=== PATIENT | male | born 1995 | race Caucasian/White ===

== ENCOUNTER 2017-01-19 08:53 | Emergency (ER) | payer OTHER ==
[~2017-01-19] VITALS: Ht 162.6 cm; Wt 64.4 kg
[~2017-01-19 08:53] MED LIST: AGM875T PO; HYDR-1231 PO; IBUP-792 PO; KETO75CA PO; [UNRECOGNIZED DRUG - OTHER]
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
--- NOTE | 2017-01-19 10:57 | ED Back Pain ---
General Chief Complaint: Back Problems Stated Complaint: BACK PAIN Nursing Triage Note: Pt fell out of a tree 2 days ago. Pt was evaluated at [facility] and had xrays done. Xray reports recieved from [facility]. Nursing Sepsis Screen: No Definite Risk Source of Information: Patient Exam Limitations: No Limitations History of Present Illness Time Seen by Provider: 10:30 Initial Comments The patient is a 21-year-old white male who reports that he fell from the tree about 2 days ago. He estimated the height to be 7-8 feet. His feet struck the [place] fence below and he fell backward heavily on his back. He had been seen by [facility]. He was x-rayed which showed perhaps a minimally narrowed joint space at L4 5. He was given a narcotic pain reliever which he did not want and would have preferred a muscle relaxant. He was also given an appointment to ortho 4 states which the thought was a bit much. He continues to have pain and stiffness. Timing/Duration: 2-3 Days Pain/Injury Location: Back Allergies and Home Medications Allergies Coded Allergies: No Known Drug Allergies (Unverified , 04/25/10) Home Medications Hydrocodone Bit/Acetaminophen 1 Tab Tablet #14 1 TAB PO Q6H PRN PRN PAIN Prescribed by: JOSE R HOPKINS on 05/03/15 1300 Constitutional: see HPI EENTM: no symptoms reported Respiratory: no symptoms reported Cardiovascular: no symptoms reported Gastrointestinal: no symptoms reported Genitourinary: no symptoms reported Musculoskeletal: back pain muscle pain Skin: no symptoms reported Psychiatric/Neurological: No Symptoms Reported Past Tjvouez-Mxhwsz-Wohjhn Hx Patient Social History Alcohol Use: Occasionally Uses Recreational Drug Use: Yes Drug of Choice: marijuana Smoking Status: Never a Smoker Recent Foreign Travel: No Contact w/Someone Who Travel: No Recent Infectious Disease Expo: No Recent Hopitalizations: No Immunizations Up To Date Tetanus Booster (TDap): Less than 5yrs Seasonal Allergies Seasonal Allergies: No Surgeries HX Surgeries: Yes (Cyst removed) Respiratory Hx Respiratory Disorders: No Cardiovascular Hx Cardiac Disorders: No Neurological Hx Neurological Disorders: No Reproductive System Hx Reproductive Disorders: No Genitourinary Hx Genitourinary Disorders: No Gastrointestinal Hx Gastrointestinal Disorders: No Musculoskeletal Hx Musculoskeletal Disorders: Yes (Hx of dislocated Left Shoulder) Endocrine Hx Endocrine Disorders: No HEENT HX ENT Disorders: No Cancer Hx Cancer: No Psychosocial Hx Psychiatric Problems: No Integumentary HX Skin/Integumentary Disorder: Yes (Persistant cystic acne) Skin/Integumentary Disorders: Recent Skin Changes Blood Transfusions Hx Blood Disorders: No Family Medical History Significant Family History: No Pertinent Family Hx Physical Exam Vital Signs Vital Sign - Last 12Hours 01/19/17 09:29 Temp 97.2 Pulse 100 Resp 18 B/P 127/87 Pulse Ox 99 Capillary Refill : Less Than 3 Seconds General Appearance: Mild Distress Cardiovascular: Regular Rate, Rhythm No Edema No Gallop No JVD No Murmur Normal Peripheral Pulses Respiratory: Chest Non Tender Lungs Clear Normal Breath Sounds No Accessory Muscle Use No Respiratory Distress Accessory Muscle Use Comments The patient showed shortening of the paravertebral muscles on the right. There is tenderness to palpation over the lower rib cage and along the right paravertebral muscles. He was carrying himself tilted to the right. There was pain to leftward side flex. There was minimum pain to extension. He lacked 1 foot of toe-touch. Progress/Results/Core Measures Results/Orders Vital Signs/I&O Vital Sign - Last 12Hours 01/19/17 09:29 Temp 97.2 Pulse 100 Resp 18 B/P 127/87 Pulse Ox 99 Blood Pressure Mean: 100 Departure Impression Impression: Primary Impression: right sided paravertebral muscle spasm Disposition: 01 HOME, SELF-CARE Condition: Stable/Unchanged Departure-Patient Inst. Decision time for Depature: 10:58 Referrals: [facility] (PCP/Family) Primary Care Physician Patient Instructions: Lumbar Muscle Strain (DC) Add. Discharge Instructions: All discharge instructions reviewed with patient and/or family. Voiced understanding. Use heat to the area. Gentle stretching exercises as demonstrated Flexeril as needed for muscle spasm and tightness Scripts [Flexeril] No Conflict Check10 Bid Prn Pain #20 Prov:KOSTA DOW MD 01/19/17 KOSTA DOW MD Jan 19, 2017 10:57
[2017-01-19] MEDS ORDERED: Flexeril (10:59)
[2017-01-19 11:00] VITALS: BP 124/84
== END 2017-01-19 11:00 | disposition home or self-care (01) ==
LOC: EDUNIT# 08:53 → ER 08:55
DX: M62.830 Muscle spasm of back (principal)
CPT/HCPCS: 99281

== ENCOUNTER 2017-03-22 17:03 | Emergency (ER) | payer SELFPAY ==
[~2017-03-22] VITALS: Ht 162.6 cm; Wt 64.4 kg
[~2017-03-22 17:03] MED LIST changes: +Flexeril
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
[2017-03-22] MEDS ORDERED: ACETAMINOPHEN 500 MG TAB (TYLENOL) PO ONE (17:30)
[2017-03-22] MEDS ORDERED: MUPIROCIN 2% OINT 22 GM (BACTROBAN) TUBE ONE (17:45)
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
[2017-03-22] MEDS ORDERED: RX-MUPIROCIN (BACTROBAN) 2% OINT 22 GM TUBE TOP STA (18:08)
[2017-03-22 18:48] VITALS: BP 0/0
[2017-03-22] MEDS ORDERED: MUPIROCIN 2% OINT 22 GM (BACTROBAN) TUBE TOP SCH (21:00)
== END 2017-03-22 18:48 | disposition home or self-care (01) ==
LOC: ER 17:03
DX: S93.401A Sprain of unspecified ligament of right ankle, initial encounter (principal); S60.511A Abrasion of right hand, initial encounter; S60.512A Abrasion of left hand, initial encounter; S50.811A Abrasion of right forearm, initial encounter; S50.812A Abrasion of left forearm, initial encounter; S80.211A Abrasion, right knee, initial encounter; S80.212A Abrasion, left knee, initial encounter; F17.210 Nicotine dependence, cigarettes, uncomplicated; V28.4XXA Motorcycle driver injured in noncollision transport accident in traffic accident, initial encounter; Y92.85 Railroad track as the place of occurrence of the external cause; Y99.8 Other external cause status
CPT/HCPCS: 29515; 71020; 73590; 73610